=== PATIENT | male | born 1960 | race Caucasian/White ===

== ENCOUNTER → 2016-06-02 | Outpatient (CLI) | payer BC ==
--- NOTE | 2016-06-02 15:10 | DIAGNOSTIC IMAGING REPORT ---
RIGHT WRIST 4 VIEWS CLINICAL HISTORY: Right wrist injury. FINDINGS: 4 views of the right wrist are obtained. No prior studies are available for comparison at the time of dictation. The skeletal structures are well mineralized. No fracture is seen. The joint spaces of the wrist are preserved. Overlying soft tissue edema is noted. IMPRESSION: Mild soft tissue swelling with no radiographic evidence of acute fracture. If there is clinical concern for occult fracture consider short-term radiographic follow-up. Electronically signed by: Miller Huerta M.D. 06/02/2016 3:08 PM Dictated Date/Time: 06/02/2016 3:06 PM
--- NOTE | 2016-06-02 15:10 | DIAGNOSTIC IMAGING REPORT ---
RIGHT HAND 3 VIEWS HISTORY: HAND INJURY Right COMPARISON: None. FINDINGS: There is no fracture or dislocation. There may be a soft tissue laceration at the dorsal aspect of the hand. No radiopaque foreign bodies. IMPRESSION: No fractures. Suspect a soft tissue laceration at the dorsum of the hand. Electronically signed by: Galen Parker M.D. 06/02/2016 3:08 PM Dictated Date/Time: 06/02/2016 3:06 PM
== END | disposition home or self-care (01) ==
LOC: C.RAD1850 14:51
PROVIDERS: ATTEND Family Medicine
DX: S69.90XA Unspecified injury of unspecified wrist, hand and finger(s), initial encounter (principal); X58.XXXA Exposure to other specified factors, initial encounter

== ENCOUNTER → 2016-10-16 | Outpatient (CLI) | payer BC ==
[~2016-10-16] MED LIST: CEPH500C2 PO; SULF800T23 PO
== END | disposition home or self-care (01) ==
LOC: C.LAB1850 08:15
PROVIDERS: ATTEND Internal Medicine
DX: Z00.00 Encounter for general adult medical examination without abnormal findings (principal); Z11.59 Encounter for screening for other viral diseases

== ENCOUNTER → 2017-03-05 | Outpatient (CLI) | payer BC ==
[2017-03-05 16:44] LABS: HEMATOCRIT 38.9 % (42-52); MEAN CELL VOLUME 87.2 fL (80-100); MEAN CORPUSCULAR HEMOGLOBIN 29.8 pg (25-34); MEAN CORPUSCULAR HGB CONC 34.2 g/dl (32-36); MEAN PLATELET VOLUME 10.3 fL (7.4-10.4); PLATELET COUNT 241 K/uL (130-400); RED BLOOD COUNT 4.46 M/uL (4.7-6.1); WHITE BLOOD COUNT 7.21 K/uL (4.8-10.8)
== END | disposition home or self-care (01) ==
LOC: C.CPL 15:43
PROVIDERS: ATTEND Physician Assistant
DX: Z01.818 Encounter for other preprocedural examination (principal); S51.012A Laceration without foreign body of left elbow, initial encounter; X58.XXXA Exposure to other specified factors, initial encounter

== ENCOUNTER → 2017-03-05 | Outpatient (CLI) | payer BC | END | disposition home or self-care (01) | LOC: C.RDSM 15:20 | PROVIDERS: ATTEND Orthopaedic Surgery Sports Medicine | DX: M25.522 Pain in left elbow (principal) ==

== ENCOUNTER → 2017-03-09 | Day surgery (SDC) | payer BC ==
[2017-03-06 10:54] VITALS: Ht 180.3 cm; Wt 81.8 kg
[~2017-03-09] VITALS: Ht 180.3 cm; Wt 81.8 kg
[~2017-03-09] MED LIST changes: +ATROPINE SULFATE 0.1 MG/ML 5ML SYR IV PRN; +BUPIVACAINE/EPINEPHRINE 0.5% MPF 1:200,000 30 ML VIAL ONE; +CEFAZOLIN 2000 MG/60 ML D5W IV SCH; +EpHEDrine SULFATE INJ 50 MG/ML AMP IV PRN; +FENTANYL CITRATE INJ 50 MCG/1 ML 2 ML VIAL IV PRN; +FENTANYL CITRATE INJ 50 MCG/1 ML 2 ML VIAL ONE; +LACTATED RINGER'S 1000ML 1,000 ML IV SCH; +LIDOCAINE HCL 1% 20 ML VIAL ONE; +LIDOCAINE HCL 2% 2 ML VIAL (20MG/ML) ONE; +METOCLOPRAMIDE HCL INJ 5 MG/ML 2 ML VIAL IV PRN; +MIDAZOLAM HCL 1 MG/ML 2ML VIAL ONE; +MoRPHine SULFATE 4 MG/ML 1 ML CARP\\VIAL IV PRN; +ONDANSETRON INJ 2 MG/ML 2 ML VIAL IV PRN; +OXYCODONE/ACETAMINOPHEN 5-325 TAB PO PRN; +PROPOFOL IV EMULSION 10 MG/ML 20 ML VIAL IV ONE; +SODIUM CHLORIDE 0.9% 1000ML 1,000 ML IV SCH
--- NOTE | 2017-03-09 07:48 | History & Physical Bridge - SC ---
H&P Re-Evaluation Bridge Note: I have examined the patient, reviewed the History & Physical and in the interval since the performance of the History & Physical I have noted the following changes of clinical significance: No changes noted
--- NOTE | 2017-03-09 08:50 | Discharge Instructions-SurgCtr ---
Discharge Instructions Date of Service Mar 09, 2017. Visit Reason for Visit: Left Elbow Open Wound Discharge Discharge Diagnosis / Problem: S/P I&D LEFT ELBOW Discharge Goals Goal(s): Decrease discomfort, Improve function, Increase independence Medications Restart Stopped Medication(s): Complete your oral antibiotics prescribed to you pre-operatively. Activity Recommendations Activity Limitations: as noted below Lifting Limitations: gradually increase as tolerated Exercise/Sports Limitations: gradually increase as tolerated Shower/Bathe: keep incision dry Driving or Machine Use: resume 1 day after discharge Weightbearing Status: Left partial Anesthesia . Post Anesthesia Instructions: If you have had General Anesthesia or IV Sedation: * Do not drive today. * Resume driving when surgeon permits. * Do not make important decisions or sign legal documents today. * Call surgeon for: 1. Temperature elevations greater than 101 degrees F. 2. Uncontrollable pain. 3. Excessive bleeding. 4. Persistent nausea and vomiting. 5. Medication intolerance (nausea, vomiting or rash). * For nausea and vomiting use only clear liquids such as: tea, soda, bouillon until nausea subsides, then gradually increase diet as tolerated. * If you have any concerns or questions, call your surgeon's office. If physician is unavailable and it is an emergency, call 911 or go to the nearest emergency room. . Instructions / Follow-Up Instructions / Follow-Up DIET: * Resume previous diet. MEDICATIONS: * Please take your prescriptions as instructed at your pre-op appointment and/ or see medication discharge instructions listed above. * If concerns develop, call your physician's office at . SPECIAL CARE INSTRUCTIONS: * Ice/Elevate as instructed. * Keep dressing clean, dry, intact. * Your surgical extremity may be discolored due to prepping agents used on the skin. A bluish-green tint is a normal variant and should not cause alarm. Call your doctor at [phone] if: * Temperature above 101 degrees * Pain not relieved by pain medicine ordered * There is increased drainage or redness from any incision * You have any unanswered questions, problems or concerns. FOLLOW UP VISIT: * If not already scheduled, please call the office at to schedule a follow-up appointment. Diet Recommendations Home Diet: resume previous diet Pending Studies Studies pending at discharge: no List of pending studies: Left elbow olecranon bursa Medical Emergencies . Who to Call and When: Medical Emergencies: If at any time you feel your situation is an emergency, please call 911 immediately. . Non-Emergent Contact Non-Emergency issues call your: Primary Care Provider . . "Provider Documentation" section prepared by Nico Day. . [place] Drug Monitoring Program Search Results: no issues identified
--- NOTE | 2017-03-09 08:52 | [facility] Post Operative Brief Note ---
Immediate Operative Summary Operative Date Mar 09, 2017. Pre-Operative Diagnosis Left Elbow Open Wound Post-Operative Diagnosis Same Procedure(s) Performed Left elbow irrigation and debridement Surgeon Dr. Jory Pugh Route Cdl Driver Surgeon(s) Dr. Massimo Kwon Estimated Blood Loss 3 Findings same Specimens Culture of Left Elbow A. Left Olecranon Tissue B. Left Olecranon Tissue (Fresh) Drains none Anesthesia sedation, local Complication(s) None Disposition Recovery Room / PACU
[2017-03-09 09:16] VITALS: TEMP 36.4
--- NOTE | 2017-03-09 09:28 | Anesthesia Progress Nt - [facility] ---
Anesthesia Post Op Note Date & Time Mar 09, 2017 at 09:28 Vital Signs Pain Intensity: 0 Vital Signs Past 12 Hours Date Time Temp Pulse Resp B/P (MAP) Pulse Ox O2 Delivery O2 Flow Rate FiO2 03/09/17 09:16 36.4 56 16 117/75 (89) 96 Room Air 03/09/17 07:12 36.2 60 18 121/87 (98) 96 Room Air Notes Mental Status: alert / awake / arousable, participated in evaluation Pt Amnestic to Procedure: Yes Nausea / Vomiting: adequately controlled Pain: adequately controlled Airway Patency, RR, SpO2: stable & adequate BP & HR: stable & adequate Hydration State: stable & adequate Anesthetic Complications: no major complications apparent
[2017-03-09 09:43] VITALS: BP 125/86; PULSE 50; O2SAT 100
--- NOTE | 2017-03-09 15:21 | [facility] Operative Report ---
Operative Report Operative Date Mar 09, 2017. Pre-Operative Diagnosis Left Elbow Open Wound Post-Operative Diagnosis Same Procedure(s) Performed Left elbow irrigation and debridement Surgeon Dr. Jory Pugh It Support Analyst Surgeon(s) Dr. Massimo Kwon Estimated Blood Loss 3 Findings Non-healing left elbow laceration over inflamed, hypertrophied, scarred olecranon bursa. Minimal serous drainage. Specimens Culture of Left Elbow A. Left Olecranon Tissue B. Left Olecranon Tissue (Fresh) Drains n/a Anesthesia local plus sedation Complication(s) None Disposition Recovery Room / PACU Implants n/a Indications The patient is a 56 year old male who fell on the ice injuring his left elbow last week and has had significant swelling, drainage, and a nonhealing wound over his olecranon bursitis that is failing to improve on antibiotics. The patient understands the risks of surgery, which include but are not limited to: bleeding, infection, re-operation, damage to nerves and arteries, continued pain and stiffness. The patient understands all of these instructions and explanations, all of their questions have been satisfactorily addressed. The patient has elected to proceed with surgery and the informed consent was signed. Description of Procedure The patient was taken to the Operating Room and placed in the supine position on the operating table. After general anesthetic was administered a multidisciplinary time-out was performed identifying my initials on the left upper limb as the correct and operative limb. 2 g of Ancef were given prior to any incision being made. The left arm was prepped and draped in the standard orthopaedic sterile fashion. The planned incision using his current wound was curved around the tip of the patients olecranon was marked. The incision was injected with a 50:50 mixture of 1% Lidocaine plain and 0.5% Marcaine with epinephrine for a total of 10 cc. The incision was carried down to the inflamed and enlarged bursa. There was some bleeding from the bursal tissue, that was easily controlled with electrocautery. The bursal area was debrided with sharp dissection using a scalpel, freer, rongeur, and curette removing any fibrinous and non-viable material. The wound was copiously irrigated with normal saline. The remaining soft tissue was well appearing health soft tissue. The skin was closed with 2-0 Prolene using vertical mattress sutures. The incision was covered with Xeroform, 4x4's, ABD, sterile cast padding, and an LESIA. A sling was placed for comfort. The sponge and needle counts were correct. POST-OP INSTRUCTIONS: The patient will complete his course of oral antibiotics. Pain medicine will be taken as needed. Sling for comfort. No heavy lifting. I attest to the content of the Intraoperative Record and any orders documented therein. Any exceptions are noted below.
== END | disposition home or self-care (01) ==
LOC: X.SURG 07:03
PROVIDERS: ATTEND Orthopaedic Surgery Sports Medicine
DX: S51.012A Laceration without foreign body of left elbow, initial encounter (principal); W00.0XXA Fall on same level due to ice and snow, initial encounter; Y93.22 Activity, ice hockey

== ENCOUNTER → 2017-06-22 | Outpatient (CLI) | payer BC ==
[~2017-06-22] MED LIST changes: -ATROPINE SULFATE 0.1 MG/ML 5ML SYR IV PRN; -BUPIVACAINE/EPINEPHRINE 0.5% MPF 1:200,000 30 ML VIAL ONE; -CEFAZOLIN 2000 MG/60 ML D5W IV SCH; -EpHEDrine SULFATE INJ 50 MG/ML AMP IV PRN; -FENTANYL CITRATE INJ 50 MCG/1 ML 2 ML VIAL IV PRN; -FENTANYL CITRATE INJ 50 MCG/1 ML 2 ML VIAL ONE; -LACTATED RINGER'S 1000ML 1,000 ML IV SCH; -LIDOCAINE HCL 1% 20 ML VIAL ONE; -LIDOCAINE HCL 2% 2 ML VIAL (20MG/ML) ONE; -METOCLOPRAMIDE HCL INJ 5 MG/ML 2 ML VIAL IV PRN; -MIDAZOLAM HCL 1 MG/ML 2ML VIAL ONE; -MoRPHine SULFATE 4 MG/ML 1 ML CARP\\VIAL IV PRN; -ONDANSETRON INJ 2 MG/ML 2 ML VIAL IV PRN; -OXYCODONE/ACETAMINOPHEN 5-325 TAB PO PRN; -PROPOFOL IV EMULSION 10 MG/ML 20 ML VIAL IV ONE; -SODIUM CHLORIDE 0.9% 1000ML 1,000 ML IV SCH
[2017-06-22 13:51] LABS: ALBUMIN 3.6 gm/dl (3.4-5.0); ALKALINE PHOSPHATASE 77 U/L (45-117); ALT/SGPT 22 U/L (12-78); AST/SGOT 14 U/L (15-37); BLOOD UREA NITROGEN 24 mg/dl (7-18); CALCIUM 8.6 mg/dl (8.5-10.1); CARBON DIOXIDE 29 mmol/L (21-32); CREATININE 0.88 mg/dl (0.60-1.40); GLUCOSE 91 mg/dl (70-99); POTASSIUM 4.7 mmol/L (3.5-5.1); SODIUM 139 mmol/L (136-145); TOTAL PROTEIN 6.9 gm/dl (6.4-8.2)
== END | disposition home or self-care (01) ==
LOC: C.LAB1850 11:37
PROVIDERS: ATTEND Physician Assistant
DX: R03.0 Elevated blood-pressure reading, without diagnosis of hypertension (principal)

== ENCOUNTER → 2017-07-11 | Outpatient (CLI) | payer BC ==
[2017-07-11 17:50] LABS: BLOOD UREA NITROGEN 24 mg/dl (7-18); CARBON DIOXIDE 31 mmol/L (21-32); CREATININE 1.04 mg/dl (0.60-1.40); GLUCOSE 111 mg/dl (70-99); POTASSIUM 3.6 mmol/L (3.5-5.1); SODIUM 137 mmol/L (136-145)
== END ==
LOC: C.LAB1850 16:38
PROVIDERS: ATTEND Internal Medicine
DX: R03.0 Elevated blood-pressure reading, without diagnosis of hypertension (principal); R60.0 Localized edema

== ENCOUNTER 2023-09-24 07:29 | Observation (INO) ==
--- NOTE | 2023-08-30 10:50 | PAT Medication Instructions ---
Medication Instructions Date of Service August 30, 2023 Home Medications fexofenadine 60 mg-pseudoephedrine ER 120 mg tablet,ext.release,12 hr (Anne-D 12 Hour) 1 tab PO Q12H PRN Congestion naproxen sodium 220 mg tablet (Aleve) 220 mg PO BID PRN Pain ASK your surgeon for instructions naproxen sodium 220 mg tablet (Aleve) 220 mg PO BID PRN Pain DO NOT take the morning of surgery fexofenadine 60 mg-pseudoephedrine ER 120 mg tablet,ext.release,12 hr (Anne-D 12 Hour) 1 tab PO Q12H PRN Congestion Take evening before surgery fexofenadine 60 mg-pseudoephedrine ER 120 mg tablet,ext.release,12 hr (Anne-D 12 Hour) 1 tab PO Q12H PRN Congestion (if needed) OTHERWISE NOTHING TO EAT OR DRINK AFTER MIDNIGHT Other Notes If you have any questions please call us at [phone] or [phone] or [phone] or [phone]
--- NOTE | 2023-09-04 09:00 | Anesthesiology Consultation ---
Date of Service September 04, 2023 Assessment & Plan (1) Encounter for pre-operative examination: - Infectious disease screening: Per assessment on 09/04/23: No known infectious disease contacts or current infectious disease symptoms. No noted recent Covid positive test result. - Outpatient joint assessment: Pt currently scheduled for inpatient pathway. Reviewed with Dr. Mcgee. If surgeon requests review for outpatient joint pathway, patient is an acceptable candidate for outpatient joint program from anesthesia standpoint pending PCP response regarding preop EKG. - Preop EKG: Unconfirmed preop EKG notes ricki. Reviewed with Dr. Mcgee. He recommends we defer to PCP to see if anything further recommended preoperatively from their perspective. Workload note written to PCP regarding preop EKG- Received response from PCP 09/05/23 that he is recommending patient schedule appointment with PCP office to review further ([facility], appt TBD). Chart Review Chart Review: Patient seen in Pre Admission Testing History Surgery Operation Date: 09/24/23 09:30 Proposed Procedures p Left Anterior Total Hip Arthroplasty - Bhavesh Gannon DO Height/Weight Height: 5 ft 11 in Weight: 83.6 kg Allergies Allergy/AdvReac Type Severity Reaction Status Date / Time No Known Drug Allergies Allergy Verified 08/21/23 11:43 Medications Home Medications Medication Instructions Recorded Confirmed Last Taken fexofenadine 60 mg-pseudoephedrine 1 tab PO Q12H PRN Congestion 02/28/19 08/21/23 03/09/19 17:00 ER 120 mg tablet,ext.release,12 hr (Anne-D 12 Hour) naproxen sodium 220 mg tablet 220 mg PO BID PRN Pain 08/21/23 08/21/23 Unknown (Juan) Past Medical History Medical History Allergic rhinitis History of COVID-2021 History of hyperlipidemia no meds Hypertension Controlled off-meds Lower extremity edema LLE s/p vein ablation Osteoarthritis of left hip Exercise / Class Metabolic Activity II 4-5 Yardwork/Stairs/Walk up hill (one FS: No CP, no SOB) Past Family History Family History Father Diabetes Hypertension Brother Pancreatic cancer Denies family history of Ovarian cancer Prostate cancer Osteoporosis Crohn's disease Dementia Depression Heart disease Kidney disease Myocardial infarction Breast cancer Lung cancer Colorectal cancer Stroke Past Surgical History Surgical History History of colonoscopy History of elbow surgery Left History of tonsillectomy Hx of appendectomy Hx of vasectomy Tiona teeth extracted Past Anesthesia History No Hx of Anesthesia Complications and No Family Hx of Anesthesia Complications History of PONV No Hx of PONV and No Hx of Motion Sickness Social History Smoking Status: Never smoker Do You Dip or Chew Tobacco: No Hx Alcohol Use: Yes Alcohol type: beer, wine and hard liquor alcohol intake frequency: a few times a week Hx Substance Use: No substance use type: does not use Review of Systems Patient denies chest pain, shortness of breath, dyspnea on exertion, fever, chills, cough, wheezing, palpitations. Physical Exam Vital Signs BP 149/87 P 58 TEMP 98.0 SP02 98%RA RESP 16 Physical Full cervical extension range of motion. Full TMJ range of motion. TMD 3.5 finger breaths Mallampati Score 3 Dentition: intact Lungs: clear throughout to auscultation Cardiac: regular rate, regular rhythm with extra beats, no murmurs noted Spine: normal Carotid arteries: negative bruit Extremities: no LE edema Lab Results Anesthesia Preop Results Results Anesthesia Widget: WBC 6.86 K/ul (4.8-10.8) 09/04/23 Hgb 14.6 g/dl (14.0-18.0) 09/04/23 Hct 44.6 % (42.0-52.0) 09/04/23 Plt 222 K/uL (130-400) 09/04/23 Na 139 mmol/L (136-145) 09/04/23 K 4.8 mmol/L (3.5-5.1) 09/04/23 Cl 105 mmol/L (98-107) 09/04/23 CO2 30 mmol/L (21-32) 09/04/23 BUN 24 mg/dl (6-23) H 09/04/23 Creat 0.85 mg/dl (0.6-1.4) 09/04/23 Glucose Level 83 mg/dl (70-99(Fasting)) 09/04/23 PT 10.6 Seconds (9.0-12.0) 04/09/24 PTT 30 Seconds (21-31) 09/04/23 INR 1.0 (0.9-1.1) 09/04/23 Blood Type O Positive 09/04/23 Antibody Screen NEGATIVE 09/04/23 Testing Electrocardiogram Date: 09/04/23 SB with PACs in pattern of bigeminy. "Otherwise normal ECG" Chest X-Ray Date: 09/04/23 Findings: + NAD
[~2023-09-24 07:29] MED LIST changes: +BUPIVACAINE 0.5 % 5 MG/1 ML PF 10ML VIAL ONE; -CEPH500C2 PO; -SULF800T23 PO
[2023-09-24] MEDS: dexAMETHasone**PF** 10 MG/ML VIAL IV SCH (07:51)
[2023-09-24] MEDS: ACETAMINOPHEN 500 MG TAB PO SCH ×2 (07:51→14:02)
[2023-09-24] MEDS: FAMOTIDINE 20 MG TAB PO SCH (07:51)
[2023-09-24] MEDS: LR 60ML/HR IV SCH (07:52)
[2023-09-24] MEDS: GABAPENTIN 300 MG CAP PO SCH (07:52)
[2023-09-24] MEDS ORDERED: PROPOFOL IV EMULSION 10 MG/ML 20 ML VIAL IV ONE (08:06)
[2023-09-24] MEDS ORDERED: MIDAZOLAM HCL 1 MG/ML 2ML VIAL ONE ×2 (08:06→08:07)
[2023-09-24] MEDS ORDERED: LIDOCAINE 2% 2 ML VIAL/AMP(20MG/ML) INFIL ONE (08:06)
--- NOTE | 2023-09-24 08:06 | History & Physical Bridge Note ---
Date of Service September 24, 2023 History & Physical Bridge Note I have examined the patient, reviewed the History & Physical and in the interval since the performance of the History & Physical I have noted the following changes of clinical significance: no changes noted
[2023-09-24] MEDS ORDERED: fentaNYL citrate PF 100 MCG/2 ML VIAL ONE (08:07)
[2023-09-24] MEDS: LR 500ML BOLUS, THEN 15ML/HR IV SCH (08:20)
[2023-09-24] MEDS: TRANEXAMIC ACID 1,000 MG **IV Pre-op IV SCH (08:56)
[2023-09-24] MEDS ORDERED: ePHEDrine sulfate 50 MG/ML AMP IV PRN (09:02)
[2023-09-24] MEDS ORDERED: ATROPINE SULFATE 0.1 MG/ML 10ML SYR IV PRN (09:02)
[2023-09-24] MEDS ORDERED: ONDANSETRON INJ 2 MG/ML 2 ML VIAL IV PRN ×2 (09:02→12:37)
[2023-09-24] MEDS ORDERED: fentaNYL citrate PF 100 MCG/2 ML VIAL IV PRN (09:02)
[2023-09-24] MEDS: ceFAZolin 2000MG 2,000 MG/15 ML SYR IV SCH ×2 (09:04→17:56)
[2023-09-24] MEDS: ROPIV 0.5% 246mg, Ketorolac 30mg, EPINEPHrine 0.5mg in NSS INFIL SCH (09:36)
[2023-09-24] MEDS: TRANEXAMIC ACID 1,000 MG **IV Intra-op IV SCH (10:26)
--- NOTE | 2023-09-24 10:27 | Operative Report ---
[facility] Post Operative Report Pre & Post Diagnosis Operation Date: 09/24/23 09:00 Pre-Op Diagnosis: Left Hip Degenerative Joint Disease Post-Op Diagnosis: Left Hip Degenerative Joint Disease I identified the patient and participated in the time-out.: Yes Procedure Operation Date: 09/24/23 09:00 Actual Procedures p Left Anterior Total Hip Arthroplasty(Left) - Bhavesh Gannon DO Surgeon Bhavesh Gannon DO Materials Planning Manager Bhavesh Lowry PA-C Estimated Blood Loss 250 Findings Consistent with Post-Op Diagnosis Specimens Left femoral head Description of Procedure Implants used I used a ZimmerBiomet total hip arthroplasty system with a size 3 standard offset Avenir Complete stem, a 56 mm G7 Osseoti cup with a 25mm screw, an E1 rick yethylene liner, a 40 mm ceramic head with a 0 neck. Hansel arrived at the hospital for the above procedure. He was seen in the preoperative holding area and the operative extremity was identified and signed. He was given a spinal anesthetic, a preoperative antibiotic, and TXA. He was then taken back to the operating room and laid on the table in the supine position. He was given basic sedation. The operative leg was secured to a Puristst leg positioner. The hip was then prepped and draped in sterile fashion. A timeout was done and the patient and the operative extremity was properly identified. An anterior approach was used. Dissection was taken down through the fascia and the tensor muscle belly was retracted laterally and the rectus was retracted medially. The circumflex vessels were identified and ligated. The capsule was then incised and tagged for later repair. The femoral neck was then cut and the femoral head was removed. The acetabulum was exposed. Time was spent doing a complete circumferential labral release. Sequential reaming of the acetabulum up to a size 56 reamer was done. Final reamings were done under fluoroscopy to ensure appropriate version. A Biomet 56 mm G7 cup was then impacted into place. A single 25 mm screw was placed. The E1 polyethylene liner was then snapped into place. Surrounding soft tissues were then injected with 100 cc of an o rthopedic pain control cocktail. The proximal femur was then exposed. Sequential broaching up to a size 3 broach was done. Off that broach a size 40 head with a 0 neck was trialed. The hip was reduced and fluoroscopic images showed anatomic alignment of the implants in acceptable length. The broach was removed. The final size 3 standard offset Avenir Complete stem was then impacted into place. A ceramic 40 mm head with a 0 neck was then impacted onto the stem and the hip was reduced. Final fluoroscopic images showed anatomic alignment of the hip. The capsule was then closed with #1 Vicryl suture. A dilute betadyne lavage was then done for 3 minutes. The joint was then irrigated with normal saline solution. The fascia was closed with #1 PDS suture. Skin was closed with 2-0 Vicryl, sarita, and a Silverlon dressing. He was then transferred to a hospital bed and taken to the post anesthesia care unit in stable condition. He tolerated the procedure well. Bhavesh Lowry PA-C, was present for the entire procedure. He was critical for patient positioning, prepping, draping, retraction exposure, wound closure and application of sterile dressing. I attest to the content of the Intraoperative Record and any orders documented therein. Any exceptions are noted below.
--- NOTE | 2023-09-24 10:43 | Fluoroscopy Report ---
INTRAOPERATIVE RADIOGRAPH CLINICAL HISTORY: Left hip arthroplasty. Fluoro time: 27 seconds Ka,r: 2.72 mGy FINDINGS: A single spot fluoroscopic image of the left hip is presented. A bipolar left hip arthropla sty is in near anatomic alignment. At least 3 cortical lag screws transfix the acetabular cup. There is no evidence of acute fracture in this fluoroscopic image. Surgical clips project over the scrotum. IMPRESSION: Intraoperative image from a left hip arthroplasty procedure as above. Electronically signed by: Miller Huerta M.D. 09/24/2023 10:42 AM
--- NOTE | 2023-09-24 11:27 | XRay Report ---
XR hip 1V LT w pelvis HISTORY: 62 years-old Male IN PACU - Post Surgical left hip arthroplasty COMPARISON: Fluoroscopic images of same day TECHNIQUE: AP view the pelvis with crosstable lateral view of the left hip FINDINGS: Mild right hip osteoarthritis. Left hip arthroplasty with overlying skin sarita, expected postoperat morro soft tissue swelling with deep tissue air. Surgical clips of the scrotum. IMPRESSION: Left hip arthroplasty with expected postoperative changes. ACT 112: Negative or not required by law. The above report was generated using voice recognition software. It may contain grammatical, syntax o r spelling errors. Electronically signed by: David Fuentes M.D. 09/24/2023 11:26 AM
--- NOTE | 2023-09-24 12:07 | Anesthesiology Progress Note ---
Date of Service September 24, 2023 Anesthesia Post Procedure Vital Signs Vital Signs: Temp Pulse Pulse Resp BP BP Pulse Ox 09/24/23 11:50 52 L 18 132/78 98 09/24/23 11:40 60 18 132/78 98 09/24/23 11:30 68 20 129/75 96 09/24/23 11:20 55 L 18 128/74 96 09/24/23 11:10 58 L 18 131/78 96 09/24/23 11:00 63 15 115/65 95 09/24/23 10:50 64 20 108/74 96 09/24/23 10:49 36.2 C L 65 16 108/74 96 09/24/23 07:49 36.7 C 69 18 172/108 H 98 O2 Del Method 09/24/23 11:50 Room Air 09/24/23 11:40 Room Air 09/24/23 11:30 Room Air 09/24/23 11:20 Room Air 09/24/23 11:10 Room Air 09/24/23 11:00 Room Air 09/24/23 10:50 Room Air 09/24/23 10:49 Room Air 09/24/23 07:49 Room Air Transfer of Care Handoff Completed per policy Notes Mental Status: alert / awake / arousable and participated in evaluation Patient Amnestic to Procedure: Yes Nausea / Vomiting: adequately controlled Pain: adequately controlled Airway Patency, RR, SpO2: stable & adequate BP & HR: stable & adequate Hydration State: stable & adequate Neuraxial Anesthesia: was administered and sensory block is resolving Anesthetic Complications: no major complications apparent and Pt Satisfied with anesthetic care
[2023-09-24] MEDS ORDERED: MAGNESIUM HYDROXIDE SUSP 30 ML UDC PO PRN (12:37)
[2023-09-24] MEDS ORDERED: METOCLOPRAMIDE HCL INJ 5 MG/ML 2 ML VIAL IV PRN (12:37)
[2023-09-24] MEDS ORDERED: oxyCODONE HCL IR 5 MG TAB (IMMEDIATE RELEASE) PO PRN (12:37)
[2023-09-24] MEDS ORDERED: bisacodyL 10 MG SUPP PR PRN (12:37)
[2023-09-24] MEDS ORDERED: HYDROmorphone INJ 0.5 MG/0.5 ML SYR IV PRN (12:37)
[2023-09-24] MEDS ORDERED: NALOXONE HCL 0.4 MG/1 ML VIAL/CARP IV PRN (12:37)
[2023-09-24] MEDS: ORTHO JOINT ANESTHETIC ONE (12:42)
[2023-09-24] MEDS: SODIUM CHLORIDE 0.9% 1,000 ML IV SCH (14:03)
[2023-09-24] MEDS: KETOROLAC 30 MG/ML VIAL IV SCH (14:03)
[2023-09-24] MEDS: SENNA 8.6 MG TAB PO SCH (20:04)
[2023-09-24] MEDS: DOCUSATE SODIUM 100 MG CAP PO SCH (20:04)
[2023-09-24] MEDS: ASPIRIN 81 MG ECTAB PO SCH (20:04)
[2023-09-25] MEDS: MULTIVITAMIN TAB PO SCH (08:12)
[2023-09-25] MEDS: dexAMETHasone 4 MG TAB PO SCH (08:12)
--- NOTE | 2023-09-25 09:52 | Orthopedic Progress Note ---
Date of Service September 25, 2023 Assessment & Plan (1) Status post left hip replacement: Overall, he is doing quite well today with good pain control to the left hip. He will work with physical therapy today to work on ambulation and range of motion exercises. He is on aspirin for DVT prophylaxis. He can be discharged home later this morning pending formal physical therapy evaluation and recommendations. He will follow-up with orthopedics in 2 weeks for postoperative management. Subjective . Hansel was seen evaluated this morning resting calmly in no apparent distress. He notes that his pain is well-controlled to the left hip. He notes he has been up and out of bed without any significant issues. He is yet to work physical therapy this morning. He denies any other concerns today. Review of Systems All systems reviewed & are unremarkable except as noted in HPI & below. Physical Exam . On physical examination of left hip, dressings are clean, dry, intact. His leg is out in full syndrome. He has active plantarflexion dorsiflexion of left ankle. +2 DP and PT pulse. Less than 2-second capillary refill. Normal sensation. Neurovascular intact. Results & Data Results & Data Laboratory Results . Diagnostic Findings . Postoperative x-rays of the left hip show prosthesis to be in anatomical alignment with no signs of fracture complication or loosening. PG Care Time/CCT Total # of Minutes Spent Total Time Spent with Patient: Total time spent is greater than 50% in coordination of care (as documented) at patient's floor/unit and/or counseling patient: Coding Level of Care Code 09274 Post Operative Follow-Up Diagnoses Status post left hip replacement Z96.642
--- NOTE | 2023-09-25 09:55 | Discharge Summary ---
Date of Service September 25, 2023 Principal Diagnosis Same as "Discharge Diagnosis" noted below under Discharge Instructions. Discharge Exam . On physical examination of left hip, dressings are clean, dry, intact. His leg is out in full syndrome. He has active plantarflexion dorsiflexion of left ankle. +2 DP and PT pulse. Less than 2-second capillary refill. Normal sensation. Neurovascular intact. Discharge Data Procedures Performed Operation Date: 09/24/23 09:00 Actual Procedures p Left Anterior Total Hip Arthroplasty(Left) - Bhavesh Gannon DO Ordered Studies 09/24/23 09:00 FL hip LT 1V Routine Hospital Course (1) Status post left hip replacement: On September 24, 2023 Hansel arrived at [facility] and underwent a left anterior total hip arthroplasty performed by Dr. Gannon with no complications. He had a spinal anesthetic. Postoperatively, he was started on aspirin for DVT prophylaxis and transferred to the general orthopedic floor in stable condition. His hospital course was uneventful. On postoperative day #1, his vital signs were stable and his pain was well-controlled. He participated well with physical therapy work on ambulation and range of motion exercises. He was then discharged home in stable condition. He will follow-up with orthopedics in 2 weeks for postoperative management. PG Care Time/CCT Total # of Minutes Spent Total Time Spent with Patient: Total time spent is greater than 50% in coordination of care (as documented) at patient's floor/unit and/or counseling patient: Discharge Plan Discharge Items Patient Disposition: Home - Home Health Services Reason For Visit: Left Hip Degenerative Joint Disease Discharge Diagnosis: Same Activity: Per Instructions section Non-emergency contact: Surgeon Call non-emergency contact if: your temperature is above 101.5, your wound has increased redness, your wound has increased drainage and your wound pain has increased Follow-up/Referrals: ProBo MD [Primary Care Provider] - Diet: Regular Addtl Attending Provider Instructions: Activity and Therapy Recommendations: * If you are using [facility] then therapy will be provided at your home until they feel you have accomplished all of your goals. * If you are using [facility] then Physical Therapy will be provided until they feel you are ready to start Outpatient Physical Therapy. * If you are not using home therapy then Outpatient Physical Therapy should start about 3-5 days from your day of surgery. Therapy will last about 6-10 weeks * You were shown a series of exercises in the hospital. Do these exercises three times each day including the exercises you were shown in physical therapy. * Get up and walk several times each day.~ For the first four weeks, try not to stand or walk for more than one hour at a time. If you do stand or walk for more than one hour, you will not hurt anything, but your leg will likely swell.~~ * As you feel comfortable, you may change from the walker or crutches to a cane and~then to independent walking. Medications: * Narcotic You will likely be sent home from the hospital with a prescription for the narcotic pain medication that worked best throughout your stay. * Cefadroxil -take the antibiotic twice a day for 10 days to help prevent infection. * Aspirin Most patients will be required to take Aspirin 81mg twice a day for 6 weeks after surgery. This is obtained [id number] and a prescription is not necessary. * Other medications may be prescribed for specific circumstances. If you have any questions, please call the office at . * Resume previous home medications unless otherwise instructed TEDs/Elastic Stockings: The white elastic stockings help limit swelling and prevent blood clots from forming in your legs. The more you wear them, the more they work. Wear them for six weeks. Dressing Care: Leave the Silverlon dressing in place for 7 days. After 7 days you may remove the dressing. If the incision is not draining then you may leave the sarita open to air. If there is a little bit of drainage or if the sarita are getting stuck on your clothing then cover the incision with a dry dressing. The sarita will be removed at your 2 week follow-up appointment. Showering: You may shower with the Silverlon dressing in place. Do not let the shower spray hit the dressing directly. Pat the Silverlon dressing dry. If the dressing becomes wet underneath, then simply remove the dressing. Keep the incision dry until you are 7 days out from the day of surgery. After 7 days you may remove the Silverlon dressing and shower with the sarita exposed. Let soapy water run over the sarita and pat them dry. Do not scrub or soak the incision. Things To Watch For: * Drainage from the incision site that occurs more than one week after your surgery. * Increased redness at the incision site. * Fever above 102 degrees Fahrenheit. * Unusual chest pain or shortness of breath. * Call [facility] at with any of the above problems Follow-Up Visit: Follow-up with Dr. Gannon's PA (Bhavesh Lowry) 2-3 weeks after your day of surgery. He will remove your sarita and answer any questions. If you have any additional questions or concerns, Dr Gannon is usually in the office at the same time and will be available An appointment was probably scheduled when you signed-up for surgery in the office. If you have any questions call Office Instructions: More detailed instructions as well as Frequently Asked Questions were provided in a folder by our office when you signed-up for surgery. Please review these instructions when you get home. If you have any further questions or concerns, please feel free to call the office at [phone] Pending Studies at Discharge: No Stand-Alone Forms: My [facility], Smoking Cessation Medications and DC Order Prescriptions: New oxycodone 5 mg Tablet 5 mg PO Q6H PRN (Reason: pain) Qty: 30 0RF cefadroxil 500 mg capsule 500 mg PO BID 10 Days Qty: 20 0RF aspirin 81 mg Tablet,Delayed Release (Dr/Ec) 81 mg PO BID 42 Days Qty: 0 0RF Continued fexofenadine-pseudoephedrine [Anne-D 12 Hour] 60-120 mg Tablet Extended Release 12 Hr 1 tab PO Q12H PRN (Reason: Congestion) Discontinued naproxen sodium [Aleve] 220 mg Tablet 220 mg PO BID PRN (Reason: Pain) Krames/Other Patient Handouts: DVT Post Op Prevention Admission Data Admit Date/Time: 09/24/23 10:50 Attending Provider: Bhavesh Gannon Admit Provider: Bhavesh Gannon Primary Care Provider: Bo Chen Other Interventions: Discharge Summary Assessment (RN) Last Done: 09/25/23 07:54
== END 2023-09-25 10:19 | disposition home health service (06) ==
LOC: 3E 07:29 → ASU 07:29